=== PATIENT | male | born 1970 | race Caucasian/White ===

== ENCOUNTER 2019-08-24 07:21 | Emergency (ER) | payer OTHER ==
[~2019-08-24] VITALS: Ht 175.3 cm; Wt 86.2 kg
[2019-08-24 07:21] VITALS: BP_SYST 142
--- NOTE | 2019-08-24 07:21 | NUR ---
BROUGHT IN BY [facility] AND [facility]ACED IN BED #8, TRIAGED. REPORT GIVEN TO CESAR
--- NOTE | 2019-08-24 07:25 | NUR ---
Patient BIB BLS C/O back pain. Patient A&Ox4, skin pink and warm, afebrile, patient in supine position for comfort, pain 11/13, denies N/V/D. Patient states back pain started Wednesday, pain increased this morning, pain was "cramping and pulsing" to 04/15.
--- NOTE | 2019-08-24 07:41 | NUR ---
ER Dr. Villalobos at bedside examining patient.
[2019-08-24] MEDS ORDERED: fentaNYL CITRATE/PF 100 MCG/2 ML AMP EP ONE (08:00)
[2019-08-24] MEDS ORDERED: DEXAMETHASONE SOD PHOSPHATE 10 MG/ML VIAL IM ONE (08:00)
--- NOTE | 2019-08-24 08:29 | NUR ---
Patient to Radiology in [facility] with staff
[2019-08-24 09:50] VITALS: BP_SYST 139
--- NOTE | 2019-08-24 09:50 | NUR ---
Patient given written and verbal discharge instructions and verbalizes understanding. ER MD discussed with patient the results and treatment provided. Patient in stable condition. ID arm band removed. IV catheter removed intact and dressing applied, no active bleeding. Rx of Soma, naproxen, given. Patient educated on pain management and to follow up with PMD. Pain Scale 0/10. Opportunity for questions provided and answered. Medication side effect fact sheet provided.
== END 2019-08-24 09:50 | disposition home or self-care (01) ==
LOC: SED 07:21
DX: M54.5 Low back pain (principal)
CPT/HCPCS: 72100; 96374; 96375; 99283; J1100; J3010